=== PATIENT | female | born 1960 | race Caucasian/White ===

== ENCOUNTER 2023-10-04 14:33 | Outpatient (CLI) | payer MEDICAID | END 2023-10-04 23:59 | disposition home or self-care (01) | LOC: RAD 14:33 | PROVIDERS: ATTEND Internal Medicine | DX: R91.8 Other nonspecific abnormal finding of lung field (principal); J43.9 Emphysema, unspecified; K76.0 Fatty (change of) liver, not elsewhere classified; I70.0 Atherosclerosis of aorta; R16.0 Hepatomegaly, not elsewhere classified; M47.814 Spondylosis without myelopathy or radiculopathy, thoracic region; J98.11 Atelectasis; J90 Pleural effusion, not elsewhere classified; I25.10 Atherosclerotic heart disease of native coronary artery without angina pectoris; R05.3 Chronic cough | CPT/HCPCS: 71250 ==